=== PATIENT | female | born 1990 | race Caucasian/White ===

== ENCOUNTER 2021-03-19 06:46 | Emergency (ER) | payer BC ==
[2021-03-19 07:34] VITALS: BP 115/81; PULSE 91; TEMP 98.1; BMI 21.9
== END 2021-03-19 10:21 | disposition home or self-care (01) ==
LOC: JER 06:46
PROC: 0HQGXZZ Repair Left Hand Skin, External Approach (ICD-10-PCS; principal; 2021-03-19)
PROC: 3E0234Z Introduction of Serum, Toxoid and Vaccine into Muscle, Percutaneous Approach (ICD-10-PCS; 2021-03-19)
DX: S61.215A Laceration without foreign body of left ring finger without damage to nail, initial encounter (principal); S62.655A Nondisplaced fracture of middle phalanx of left ring finger, initial encounter for closed fracture; W49.9XXA Exposure to other inanimate mechanical forces, initial encounter
CPT/HCPCS: 73130-TC-LT-FY; 90715; 99284-25